=== PATIENT | male | born 1970 | race Caucasian/White ===

== ENCOUNTER 2018-08-17 20:44 | Emergency (ER) | payer OTHER ==
[~2018-08-17] VITALS: Ht 182.9 cm; Wt 93.2 kg
[~2018-08-17 20:44] MED LIST: LACRI-LUBE1 OI1 OD; NO HOME MEDICATIONS; PREDNISONE10 M1 PO
[2018-08-17 21:06] VITALS: BP 145/93; TEMP 97.8
[2018-08-17 22:12] VITALS: PULSE 68
== END 2018-08-17 22:15 | disposition home or self-care (01) ==
LOC: COL.ER 20:44
DX: S62.306A Unspecified fracture of fifth metacarpal bone, right hand, initial encounter for closed fracture (principal); W22.8XXA Striking against or struck by other objects, initial encounter; Y92.59 Other trade areas as the place of occurrence of the external cause
CPT/HCPCS: Q4021